=== PATIENT | female | born 2000 | race Two or more races ===

== ENCOUNTER 2025-07-19 15:39 | Observation (INO) | payer BC, SELFPAY ==
[2025-07-19] VITALS (66 sets, daily range): BP systolic 103–118; BP diastolic 56–72; PULSE 69–95; RESP 16–99; TEMP 36.2–36.8; O2SAT 98–100; BMI 36.1
[2025-07-19] MEDS: RINGERS LACTATED 1000 ML 1,000 ML 999 ML IV (16:22)
--- NOTE | 2025-07-19 16:32 | XR_ITS ---
Examination: Complete OB ultrasound greater than 14 weeks Date and time of exam: July 19, 2025, 1701 hours INDICATIONS: Pelvic pressure and pain after hitting abdomen today, labor evaluation Findings: Viable intrauterine single fetus with single amniotic sac presentation cephalic Cardiac motion 140 bpm Placenta anterior grade 1 Umbilical cord insertion seen Amniotic fluid index 16.2 cm Cervix 3.0 cm Ovaries obscured by bowel gas. Composite estimated gestational age based on BPD, head circumference, abdominal circumference, femur length is 31 weeks 0 days Estimated weight 1619.6 g. Survey of intracranial anatomy, spinal anatomy, abdominal anatomy, four-chamber heart performed with no abnormalities identified. Impression: Viable intrauterine gestation cephalic presentation.
--- NOTE | 2025-07-19 16:32 | XR_ITS ---
Examination: Biophysical profile, ultrasound Date and time of exam: July 19, 2025, 1655 hours INDICATIONS: Pelvic pressure and pain after hitting abdomen today, labor evaluation Technique: Multiple transabdominal sonographic images of the pelvis abdomen obtained. Attention is directed to the breathing movement, gross body movement, amniotic fluid volume and tone. Findings: Amniotic fluid index 16.2 cm Total biophysical profile is 8 of 8. breathing movement is 2. Gross body movement is 2. tone is 2. Qualitative amniotic fluid volume is 2 Impression: Biophysical profile is 8 of 8.
[2025-07-19 16:42] LABS: Basophils # (Auto) 0.0 Thou/mm3 (0.0-0.2); Basophils % (Auto) 0 % (0-2.5); Eosinophils # (Auto) 0.0 Thou/mm3 (0.0-0.5); Eosinophils % (Auto) 0 % (0-10); Hematocrit 33.2 % (36.0-46.0); Hemoglobin 11.3 g/dL (12.0-16.0); Immature Granulocytes Auto 0.11 Thou/mm3 (0.00-0.00); Lymphocytes # (Auto) 1.8 Thou/mm3 (1.0-4.8); Lymphocytes % (Auto) 14 % (10-50); Mean Corpuscular HGB Conc 34.0 g/dl (31.0-37.0); Mean Corpuscular Hemoglobin 28.8 pg (25.0-35.0); Mean Corpuscular Volume 85 fL (80-100); Monocytes # (Auto) 0.6 Thou/mm3 (0.0-0.8); Monocytes % (Auto) 5 % (0-12); Neutrophils # (Auto) 10.1 Thou/mm3 (1.8-7.7); Neutrophils % (Auto) 80 % (37-80); Nucleated Red Blood Cell # 0.00 Thou/mm3 (0.00-0.00); Nucleated Red Blood Cell % 0 /100 WBC (0); Platelet Count 212 Thou/mm3 (140-440); RDW Standard Deviation 38.3 fL (36.4-46.3); Red Blood Count 3.93 Miln/mm3 (4.00-5.20); White Blood Count 12.7 Thou/mm3 (3.6-11.0)
[2025-07-19 16:57] LABS: INR 0.9 (0.9-1.3); Partial Thromboplastin Time 27.7 Seconds (22.0-36.0); Prothrombin Time 10.1 Seconds (9.0-12.2)
[2025-07-19 17:05] LABS: ROM Swab Mixed By: AYONJ; Rupture of Fetal Membranes Negative (Negative); Swb Mxed in Solvent 1 min? Yes
[2025-07-19 17:28] LABS: FFN Specimen Descripton Clr Colrless Aqueous; Fetal Fibronectin Negative (Negative)
== END 2025-07-19 21:23 | disposition home or self-care (01) ==
PROVIDERS: Admitting Provider Obstetrics & Gynecology; Visit Provider Obstetrics & Gynecology
DX: O36.8130 Decreased fetal movements, third trimester, not applicable or unspecified (principal); Z3A.31 31 weeks gestation of pregnancy
CPT/HCPCS: 36415; 59025; 59899; 76805; 76819; 82731; 84112; 85025; 85610; 85730; 86850; 86870; 86900; 86901; J7120